=== PATIENT | female | born 1990 | race Caucasian/White ===

== ENCOUNTER 2023-07-06 10:18 | Emergency (ER) | payer MEDICAID ==
[2023-07-06] MEDS: Ketamine 500 mg/10 ML MDV IV ONE ×2 (11:00→11:16)
[2023-07-06] MEDS: Dexamethasone 4 MG/ML SDV IVPUSH ONE (11:06)
[2023-07-06] MEDS: Ketorolac 30 MG/ML SDV IVPUSH ONE (11:06)
[2023-07-06] MEDS: Lidocaine 5% 700 MG Patch TOP ONE (11:10)
== END 2023-07-06 11:41 | disposition home or self-care (01) ==
LOC: DL.ED 10:18
DX: M51.26 Other intervertebral disc displacement, lumbar region (principal); X50.0XXA Overexertion from strenuous movement or load, initial encounter; Z88.2 Allergy status to sulfonamides
CPT/HCPCS: 96374; 96375; 99282; 99283-25; A9270-GY; J1100; J1885; J3490

== ENCOUNTER 2023-11-27 05:58 | Emergency (ER) | payer MEDICAID ==
[2023-11-27 06:28] LABS: APPEARANCE,URINE CLEAR (CLEAR); BILIRUBIN,URINE NEGATIVE (NEGATIVE); COLOR,URINE YELLOW (YELLOW); GLUCOSE,URINE NEGATIVE (NEGATIVE); KETONES,URINE NEGATIVE (NEGATIVE); LEUKOCYTE ESTERASE,URINE NEGATIVE (NEGATIVE); NITRITE,URINE NEGATIVE (NEGATIVE); OCCULT BLOOD,URINE TRACE-LYSED (NEGATIVE); PROTEIN,URINE NEGATIVE (NEGATIVE); UROBILINOGEN,URINE 0.2 mg/dL (0.2-1.0)
[2023-11-27] MEDS: Phenazopyridine 95 MG Tab PO ONE (06:39)
[2023-11-27 06:43] LABS: EPITHELIAL CELLS,URINE MODERATE /HPF (NOT SEEN); WBC,URINE 0-5 /HPF (0-5/HPF)
[2023-11-27 06:44] LABS: BACTERIA,URINE FEW /HPF (0-FEW/HPF); MUCUS,URINE FEW /LPF (NOT SEEN)
== END 2023-11-27 06:43 | disposition home or self-care (01) ==
LOC: DL.ED 05:58
DX: R30.0 Dysuria (principal); R35.0 Frequency of micturition; F17.290 Nicotine dependence, other tobacco product, uncomplicated; Z88.2 Allergy status to sulfonamides
CPT/HCPCS: 81001; 99283; A9270-GY